=== PATIENT | male | born 1930 | race Caucasian/White ===

== ENCOUNTER 2016-05-13 08:02 | Inpatient (IN) | payer MEDICARE ==
--- NOTE | 2016-05-13 08:43 | RAD ---
History: Cough for a week. Comparison: 12/19/2015. Technique: 2 views Findings: The soft tissue and bony structures appear to be appropriate. The heart size is stable. There is mild prominence of the central vascular structures though the appearance is similar to that seen on prior exam. No gross consolidation, effusion or pneumothorax is visualized. The hilar and mediastinal structures are intact. Impression: 1. Stable prominence of the central pulmonary vascular structures. 2. Linear right apical scarring or atelectasis. 3. An otherwise negative two-view chest.
[2016-05-13 08:57] LABS: ABSOLUTE NEUTROPHIL COUNT 3.7 K/mm3 (1.8-7.7); BASO % 0.2 % (0.2-1.0); EOS % 0.6 % (0.9-2.9); HEMATOCRIT 36.9 % (32.0-52.0); HEMOGLOBIN 12.4 gm/l (14.0-18.0); IMM NEUT% 0.2 % (0-1); LYMPH # 0.5 (1.0-4.8); LYMPH % 9.3 % (15-45); MEAN CELL VOLUME 96.1 fl (80.0-94.0); MEAN CORPUSCULAR HEMOGLOBIN 32.3 pg (27.0-31.0); MEAN CORPUSCULAR HGB CONC 33.6 g/dl (33.0-37.0); MEAN PLATELET VOLUME 9.2 fl (7.4-10.4); MONO % 19.6 % (4-12); NEUT % 70.1 % (43-75); PLATELET COUNT 118 K/mm3 (130-400); RED CELL DISTRIBUTION WIDTH 13.3 % (11.5-14.5)
[2016-05-13 09:15] LABS: ALB/GLOB RATIO 1.3 (>1.0); ALBUMIN 3.5 gm/dL (3.5-5.7); CALCIUM 9.6 mg/dL (8.6-10.3)
[2016-05-13] MEDS ORDERED: LACTATED RINGERS 1,000 ML ONE (09:58)
[2016-05-13 11:18] LABS: URINE APPEARANCE CLEAR; URINE BILIRUBIN NEGATIVE (NEGATIVE); URINE BLOOD NEGATIVE (NEGATIVE); URINE COLOR YELLOW; URINE GLUCOSE (UA) NEGATIVE (NEGATIVE); URINE LEUKOCYTE ESTERASE NEGATIVE (NEGATIVE); URINE NITRITE NEGATIVE (NEGATIVE); URINE PROTEIN TRACE (NEGATIVE); URINE UROBILINOGEN NORMAL (0-1 mg/dl)
[2016-05-13 13:58] VITALS: BMI 25.7
[2016-05-13] MEDS ORDERED: SODIUM CHLORIDE 0.9% 100 ML IV PRN (14:38)
[2016-05-13] MEDS ORDERED: BISACODYL 10 MG SUP PR PRN (14:38)
[2016-05-13] MEDS ORDERED: BLISTEX LIPSTICK 1 EACH TP PRN (14:38)
[2016-05-13] MEDS ORDERED: BISACODYL 5 MG TABLET.EC PO PRN (14:38)
[2016-05-13] MEDS ORDERED: MENTHOL/CETYLPYRD 1 EACH LOZENGE PO PRN (14:38)
[2016-05-13] MEDS ORDERED: MAGNESIUM HYDROXIDE 30 ML UDCUP PO PRN (14:38)
[2016-05-13] MEDS ORDERED: SODIUM CHLORIDE 0.9% 1,000 ML IV SCH ×2 (14:45→15:45)
[2016-05-13] MEDS ORDERED: PUMP TUBING ONE (15:11)
[2016-05-13] MEDS: Oseltamivir Phosphate 75 MG CAP PO SCH ×2 (15:33→20:25)
[2016-05-13] MEDS: ACETAMINOPHEN 325 MG TABLET PO PRN (16:42)
[2016-05-13] MEDS ORDERED: ALBUTEROL/IPRATROPIUM 2.5/0.5 MG 3 ML/EACH DOSE NEB PRN (18:49)
[2016-05-13] MEDS ORDERED: ALBUTEROL NEB 2.5 MG/3 ML VIAL.NEB NEB PRN (18:49)
[2016-05-13] MEDS: ENOXAPARIN SODIUM 40 MG/0.4 ML SYRINGE SUB-Q SCH (20:25)
[2016-05-13] MEDS: TAMSULOSIN HCL 0.4 MG CAPSULE.DR PO SCH (20:25)
[2016-05-13] MEDS: ASPIRIN (ENTERIC COATED) 81 MG TABLET.EC PO SCH (20:25)
[2016-05-13] MEDS: FLUTICASONE PROP 110 MCG 120 PUFF/INHALER IH SCH (20:26)
[2016-05-13] MEDS: DOCUSATE SODIUM 100 MG CAPSULE PO SCH (20:35)
[2016-05-13] MEDS ORDERED: DOCUSATE SODIUM 100 MG CAPSULE PO SCH (21:00)
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
[2016-05-14] MEDS: ACETAMINOPHEN 325 MG TABLET PO PRN (03:27)
[2016-05-14 06:24] LABS: ABSOLUTE NEUTROPHIL COUNT 3.6 K/mm3 (1.8-7.7); BASO % 0.2 % (0.2-1.0); EOS % 0.6 % (0.9-2.9); HEMATOCRIT 33.3 % (32.0-52.0); HEMOGLOBIN 11.1 gm/l (14.0-18.0); IMM NEUT% 0.4 % (0-1); LYMPH # 0.9 (1.0-4.8); LYMPH % 16.5 % (15-45); MEAN CELL VOLUME 97.1 fl (80.0-94.0); MEAN CORPUSCULAR HEMOGLOBIN 32.4 pg (27.0-31.0); MEAN CORPUSCULAR HGB CONC 33.3 g/dl (33.0-37.0); MEAN PLATELET VOLUME 9.4 fl (7.4-10.4); MONO # 0.8 (0.0-0.8); MONO % 14.3 % (4-12); PLATELET COUNT 103 K/mm3 (130-400); RED CELL DISTRIBUTION WIDTH 13.4 % (11.5-14.5)
[2016-05-14 06:42] LABS: ALB/GLOB RATIO 1.3 (>1.0); ALBUMIN 2.9 gm/dL (3.5-5.7)
[2016-05-14] MEDS: DOCUSATE SODIUM 100 MG CAPSULE PO SCH ×2 (09:00→21:00)
[2016-05-14] MEDS: MULTIVITAMINS 1 TAB TABLET PO SCH (09:35)
[2016-05-14] MEDS: TIOTROPIUM BROMIDE 18 MCG 5 CAP/INHALER IH SCH (09:36)
[2016-05-14] MEDS: LISINOPRIL 10 MG TABLET PO SCH (09:36)
[2016-05-14] MEDS: Oseltamivir Phosphate 75 MG CAP PO SCH (09:36)
[2016-05-14] MEDS: FLUTICASONE PROP 110 MCG 120 PUFF/INHALER IH SCH ×2 (09:37→21:01)
--- NOTE | 2016-05-14 12:17 | PDOC43 ---
- Subjective Chief Complaint: Weakness, dyspnea, influenza A Patient reports having some soreness in chest last 30 min, seems assoc with cough. Otherwise, feeling about the same as yesterday, still short of breath with activity despite O2 per [place], limited activity tolerance. - Objective Vital Signs Temperature 98.8 F 05/14/16 11:00 Pulse Rate 78 05/14/16 11:00 Respiratory Rate 20 05/14/16 11:00 Blood Pressure 139/58 05/14/16 11:00 O2 Saturation by Pulse Oximetry 93 05/14/16 11:00 Oxygen Delivery Method Nasal Cannula Oxygen Flow Rate 1 Vital Signs Last 12 Hours Temp Pulse Resp BP Pulse Ox 05/14/16 11:00 98.8 F 78 20 139/58 93 05/14/16 07:00 97.6 F 86 21 153/46 93 05/14/16 03:27 85 22 92 05/14/16 03:25 99.1 F 85 24 145/67 92 05/14/16 02:00 28 Intake and Output 05/12/16 05/13/16 05/14/16 23:59 23:59 23:59 Intake Total 1000 2629 Output Total 200 1550 Balance 800 1079 General: Alert, Cooperative, No Acute Distress Lungs: Other (sl coarse breath sounds bilat. Rare crackles at bases) Cardiovascular: Regular Rate and Rhythm Abdomen: Soft, Normal Bowel Sounds, Non-Distended, No Tenderness Extremities: No Edema, No Tenderness Skin: Normal Color Neurological: Normal Speech Psych/Mental Status: Normal Affect Laboratory 05/14/16 05:30 05/14/16 05:30 05/14/16 05:30 RBC 3.43 L MCV 97.1 H MCH 32.4 H Anion Gap 7 L Estimated GFR 92 H Calcium 8.0 L Total Protein 5.2 L Albumin 2.9 L Current Medications: Current meds reviewed in EMR. Active Medications Acetaminophen (Tylenol) 650 mg PO Q6H PRN PRN Reason: Pain or Temperature > 100.5 F Last Admin: 05/14/16 03:27 Dose: 650 mg Albuterol Sulfate (Ventolin Inhalation Solution (Dose)) 2.5 mg NEB Q2H PRN PRN Reason: Wheezing Albuterol/Ipratropium (Duoneb) 3 ml NEB Q6H PRN PRN Reason: Wheezing Last Admin: 05/14/16 03:27 Dose: 3 ml Aspirin (Ecotrin) 81 mg PO BEDTIME [facility] Last Admin: 05/13/16 20:25 Dose: 81 mg Benzocaine/Menthol (Cepacol) 1 each PO PRN PRN PRN Reason: Sore Throat Bisacodyl (Dulcolax) 10 mg MS DAILY PRN PRN Reason: Constipation Bisacodyl (Dulcolax) 5 mg PO DAILY PRN PRN Reason: Constipation Docusate Sodium (Colace) 200 mg PO BID [facility] Last Admin: 05/13/16 20:35 Dose: Not Given Enoxaparin Sodium (Lovenox) 40 mg SUB-Q Q24H [facility] Last Admin: 05/13/16 20:25 Dose: 40 mg Finasteride (Proscar) 5 mg PO 1200 [facility] Fluticasone Propionate (Flovent Hfa 110 Mcg) 1 puff IH BID [facility] Last Admin: 05/14/16 09:37 Dose: 1 puff Sodium Chloride (Sodium Chloride 0.9%) 100 mls @ 25 mls/hr IV PRN PRN PRN Reason: Flush Lisinopril (Prinivil) 10 mg PO DAILY [facility] Last Admin: 05/14/16 09:36 Dose: 10 mg Magnesium Hydroxide (Milk Of Magnesia) 30 ml PO DAILY PRN PRN Reason: Constipation Multivitamins (One-A-Day) 1 tab PO DAILY [facility] Last Admin: 05/14/16 09:35 Dose: 1 tab Oseltamivir Phosphate (Tamiflu) 30 mg PO BID [facility] Petrolatum/Paraffin/Mineral Oil (Blistex) 1 each TP PRN PRN PRN Reason: Dry and/or chapped lips Sodium Chloride (Normal Saline 10ml Flush) 10 - 50 ml IV PRN PRN PRN Reason: IV Flush Sodium Chloride (Normal Saline 10ml Flush) 10 ml IV Q8HR [facility] Last Admin: 05/14/16 09:35 Dose: 10 ml Tamsulosin HCl (Flomax) 0.4 mg PO BEDTIME [facility] Last Admin: 05/13/16 20:25 Dose: 0.4 mg Tiotropium [place] (Spiriva Handihaler) 1 cap IH DAILY [facility] Last Admin: 05/14/16 09:36 Dose: 1 inh - Problems: Assessment/Plan (1) Influenza A Status: Acute Assessment/Plan: On Tamiflu, started 05/13. Some respiratory distress, still on 1 L O2 per NC. Will continue on current regimen, and plan to assess chest pain with troponin, and [place] prn chest pain/cough (2) HTN (hypertension) Qualifiers: Hypertension type: essential hypertension Qualifier Code: (I10) Essential (primary) hypertension Status: Chronic Assessment/Plan: On regular meds VTE Prophylaxis: enoxaparin Disposition: anticipate a return to home in 1-3 days, expected when tolerating activity on RA.
[2016-05-14] MEDS: FINASTERIDE 5 MG TABLET PO SCH (12:41)
[2016-05-14] MEDS: HYDROCODONE/ACETAMINOPHEN 5/325MG TABLET PO PRN (13:30)
--- NOTE | 2016-05-14 15:43 | PDOC36 ---
Provider Note Subject: Patient noted to have runs of SVT on monitor-TSH ordered, will start on atenolol 25mg PO daily
[2016-05-14] MEDS: ATENOLOL 25 MG TABLET PO SCH (16:11)
[2016-05-14] MEDS ORDERED: IBUPROFEN 200 MG TABLET PO PRN (16:16)
[2016-05-14] MEDS: ENOXAPARIN SODIUM 40 MG/0.4 ML SYRINGE SUB-Q SCH (19:34)
[2016-05-14] MEDS: TAMSULOSIN HCL 0.4 MG CAPSULE.DR PO SCH (21:00)
[2016-05-14] MEDS: ASPIRIN (ENTERIC COATED) 81 MG TABLET.EC PO SCH (21:01)
[2016-05-14] MEDS: OSELTAMIVIR PHOSPHATE 30 MG/5 ML SYRINGE PO SCH (21:01)
[2016-05-15] MEDS: HYDROCODONE/ACETAMINOPHEN 5/325MG TABLET PO PRN ×2 (02:54→21:59)
[2016-05-15 05:56] LABS: ABSOLUTE NEUTROPHIL COUNT 3.1 K/mm3 (1.8-7.7); BASO % 0.2 % (0.2-1.0); EOS # 0.1 (0.0-0.5); EOS % 1.6 % (0.9-2.9); HEMATOCRIT 34.1 % (32.0-52.0); HEMOGLOBIN 11.6 gm/l (14.0-18.0); IMM NEUT% 0.4 % (0-1); LYMPH # 1.1 (1.0-4.8); LYMPH % 21.1 % (15-45); MEAN CELL VOLUME 94.7 fl (80.0-94.0); MEAN CORPUSCULAR HEMOGLOBIN 32.2 pg (27.0-31.0); MEAN PLATELET VOLUME 9.2 fl (7.4-10.4); MONO # 0.8 (0.0-0.8); MONO % 15.7 % (4-12); PLATELET COUNT 102 K/mm3 (130-400)
[2016-05-15 06:15] LABS: ALB/GLOB RATIO 1.2 (>1.0); ALBUMIN 2.9 gm/dL (3.5-5.7); CALCIUM 8.1 mg/dL (8.6-10.3)
[2016-05-15] MEDS: LISINOPRIL 10 MG TABLET PO SCH (08:05)
[2016-05-15] MEDS: ATENOLOL 25 MG TABLET PO SCH (08:05)
[2016-05-15] MEDS: TIOTROPIUM BROMIDE 18 MCG 5 CAP/INHALER IH SCH (08:05)
[2016-05-15] MEDS: DOCUSATE SODIUM 100 MG CAPSULE PO SCH ×2 (08:05→21:02)
[2016-05-15] MEDS: OSELTAMIVIR PHOSPHATE 30 MG/5 ML SYRINGE PO SCH ×2 (08:05→21:02)
[2016-05-15] MEDS: MULTIVITAMINS 1 TAB TABLET PO SCH (08:06)
[2016-05-15] MEDS: FLUTICASONE PROP 110 MCG 120 PUFF/INHALER IH SCH ×3 (08:06→21:02)
--- NOTE | 2016-05-15 10:15 | RAD ---
PORTABLE CHEST RADIOGRAPH HISTORY: Fluid, hypoxia. Frontal portable chest radiograph dated 05/15/2016. COMPARISON: 05/13/2016. FINDINGS: FOCAL AIRSPACE OPACITY: Developing right basilar density. Less prominent developing densities at the left lung base and right upper lung field. PLEURAL EFFUSION: None. CARDIOMEDIASTINAL SILHOUETTE: Nonenlarged. Aortic arch calcification. PNEUMOTHORAX: None identified. OSSEOUS STRUCTURES: No grossly destructive lesions. IMPRESSION: Developing airspace opacities as above, atelectasis and multifocal pneumonia are possible. Aortic atherosclerotic disease.
[2016-05-15] MEDS: FINASTERIDE 5 MG TABLET PO SCH (11:37)
--- NOTE | 2016-05-15 14:05 | PDOC43 ---
- Subjective Chief Complaint: Cough and dyspnea. Feeling better today, eager to go home but still needing O2. Denies dyspnea or weakness. - Objective Vital Signs Temperature 97.8 F 05/15/16 12:44 Pulse Rate 69 05/15/16 12:44 Respiratory Rate 20 05/15/16 12:44 Blood Pressure 122/50 05/15/16 12:44 O2 Saturation by Pulse Oximetry 95 05/15/16 12:44 Oxygen Delivery Method Nasal Cannula Oxygen Flow Rate 1 83% on room air Intake and Output 05/14/16 05/15/16 05/16/16 06:59 06:59 06:59 Intake Total 3629 1430 Output Total 1750 1525 Balance 1879 -95 General: Alert, Oriented x3, Cooperative, No Acute Distress HEENT: Mucous membr. moist/pink Lungs: Clear to Auscultation Bilaterally Cardiovascular: Regular Rate and Rhythm, No Murmur Abdomen: Soft, Normal Bowel Sounds, No Tenderness, No Masses Extremities: Normal Pulses, No Edema Skin: Normal Color Neurological: Normal Speech Psych/Mental Status: Normal Mood Laboratory 05/15/16 05:30 05/15/16 05:30 05/15/16 05:30 RBC 3.60 L MCV 94.7 H MCH 32.2 H Estimated GFR 92 H Calcium 8.1 L Total Protein 5.4 L Albumin 2.9 L Current Medications: Current meds reviewed in EMR. - Problems: Assessment/Plan (1) Influenza A Status: Acute Assessment/Plan: On Tamiflu, started 05/13. Viral Pneumonia on f/u CXR today, still has O2 requirement but feeling much better. (2) HTN (hypertension) Qualifiers: Hypertension type: essential hypertension Qualifier Code: (I10) Essential (primary) hypertension Status: Chronic Assessment/Plan: stable on usual meds. (3) Hyponatremia Status: Acute Assessment/Plan: mild, not significant (4) Anemia Status: Chronic Assessment/Plan: mild, stable, defer to outpatient provider for w/u. (5) COPD (chronic obstructive pulmonary disease) Qualifiers: COPD type: unspecified COPD Qualifier Code: (J44.9) Chronic obstructive pulmonary disease, unspecified Status: Chronic Assessment/Plan: On spireva at home. Current O2 requirement is due to viral pneumonia, not COPD. (6) Hypoxemia Status: Acute Assessment/Plan: Due to viral pneumonia, titrate O2 (7) BPH (benign prostatic hyperplasia) Qualifiers: Prostatic enlargement morphology: unspecified morphology Lower urinary tract symptom presence: symptoms present Qualifier Code: (N40.1) Benign prostatic hyperplasia with lower urinary tract symptoms Status: Chronic Assessment/Plan: stable (8) SVT (supraventricular tachycardia) Status: Acute Assessment/Plan: Transient and resolved. TSH normal, atenolol started. VTE Prophylaxis: enoxaparin Disposition: home vs. SNF in 1-2 days depending on strength and O2 requirement.
[2016-05-15] MEDS: ALBUTEROL/IPRATROPIUM 2.5/0.5 MG 3 ML/EACH DOSE NEB SCH ×2 (15:56→20:43)
[2016-05-15] MEDS: ENOXAPARIN SODIUM 40 MG/0.4 ML SYRINGE SUB-Q SCH (19:35)
[2016-05-15] MEDS: ASPIRIN (ENTERIC COATED) 81 MG TABLET.EC PO SCH (21:01)
[2016-05-15] MEDS: TAMSULOSIN HCL 0.4 MG CAPSULE.DR PO SCH (21:02)
[2016-05-16 07:46] LABS: HEMOGLOBIN 12.4 gm/l (14.0-18.0); MEAN CELL VOLUME 93.5 fl (80.0-94.0); MEAN CORPUSCULAR HEMOGLOBIN 32.2 pg (27.0-31.0); MEAN CORPUSCULAR HGB CONC 34.4 g/dl (33.0-37.0)
[2016-05-16] MEDS: ALBUTEROL/IPRATROPIUM 2.5/0.5 MG 3 ML/EACH DOSE NEB SCH ×2 (07:55→12:04)
[2016-05-16 08:15] VITALS: BP 132/56
[2016-05-16] MEDS: DOCUSATE SODIUM 100 MG CAPSULE PO SCH (09:33)
[2016-05-16] MEDS: ATENOLOL 25 MG TABLET PO SCH (09:33)
[2016-05-16] MEDS: MULTIVITAMINS 1 TAB TABLET PO SCH (09:34)
[2016-05-16] MEDS: FLUTICASONE PROP 110 MCG 120 PUFF/INHALER IH SCH (09:34)
[2016-05-16] MEDS: LISINOPRIL 10 MG TABLET PO SCH (09:34)
[2016-05-16] MEDS: TIOTROPIUM BROMIDE 18 MCG 5 CAP/INHALER IH SCH (09:35)
[2016-05-16] MEDS: OSELTAMIVIR PHOSPHATE 30 MG/5 ML SYRINGE PO SCH (10:18)
--- NOTE | 2016-05-16 11:37 | PDOC5 ---
ADMIT DATE: 05/13/16 DISCHARGE DATE: 05/16/16 ADMISSION DIAGNOSES: Influenza A PROCEDURES PERFORMED THIS HOSPITALIZATION: none CONSULTATIONS: OT/PT--needs SNF rehab for weakness HOSPITAL COURSE: This is a 86 year old became weak and dizzy while visiting his in the hospital. He was taken to the ER where he was diagnosed with acute Influenza A. He was admitted and treated with Tamaflu and supplemental oxygen. He remains weak and needing rehab although his oxygen requirement has resolved. - Exam Vital Signs Temperature 98.0 F 05/16/16 07:00 Pulse Rate 62 05/16/16 07:57 Respiratory Rate 16 05/16/16 07:57 Blood Pressure 132/56 05/16/16 07:00 O2 Saturation by Pulse Oximetry 95 05/16/16 07:57 Oxygen Delivery Method Nasal Cannula Oxygen Flow Rate 1 General: Alert, No Oriented x3, No Cooperative, No Acute Distress HEENT: Mucous membr. moist/pink Lungs: Other (course breath sounds) Cardiovascular: Regular Rate and Rhythm Abdomen: Soft, Normal Bowel Sounds, No Tenderness, No Masses Extremities: Normal Pulses, No Edema Neurological: Normal Speech Psych/Mental Status: Agitated (angry about discharge and transport) - Results Laboratory 05/16/16 07:45 05/15/16 05:30 05/16/16 07:45 RBC 3.85 L MCH 32.2 H - Problems:Assessment/Plan (1) Influenza A Status: Acute Assessment/Plan: On Tamiflu, started 05/13. Viral Pneumonia on f/u CXR 05/15, no O2 requirement. (2) HTN (hypertension) Qualifiers: Hypertension type: essential hypertension Qualifier Code: (I10) Essential (primary) hypertension Status: Chronic Assessment/Plan: stable on usual meds. (3) Hyponatremia Status: Acute Assessment/Plan: mild, not significant (4) Anemia Status: Chronic Assessment/Plan: mild, stable, defer to outpatient provider for w/u. (5) COPD (chronic obstructive pulmonary disease) Qualifiers: COPD type: unspecified COPD Qualifier Code: (J44.9) Chronic obstructive pulmonary disease, unspecified Status: Chronic Assessment/Plan: On spireva at home. Current O2 requirement is due to viral pneumonia, not COPD. (6) Hypoxemia Status: Acute Assessment/Plan: Due to viral pneumonia, titrate O2 (7) BPH (benign prostatic hyperplasia) Qualifiers: Prostatic enlargement morphology: unspecified morphology Lower urinary tract symptom presence: symptoms present Qualifier Code: (N40.1) Benign prostatic hyperplasia with lower urinary tract symptoms Status: Chronic Assessment/Plan: stable (8) SVT (supraventricular tachycardia) Status: Acute Assessment/Plan: Transient and resolved. TSH normal, atenolol started. - Disposition: Disposition: SNF today - Discharge Plan Prescriptions: Atenolol [TENORMIN 25 MG TABLET (SHF)] 25 mg PO DAILY #30 tablet Oseltamivir Phosphate [Tamiflu] 30 mg PO BID 1 Days Condition: Good Disposition: Halfway Facility
== END 2016-05-16 12:15 | DRG 194 ==
LOC: ED 08:02 → MS 13:08
PROVIDERS: ADMIT Family Medicine; ATTEND Family Medicine
DX: J09.X2 Influenza due to identified novel influenza A virus with other respiratory manifestations (principal); E87.1 Hypo-osmolality and hyponatremia; I10 Essential (primary) hypertension; J44.9 Chronic obstructive pulmonary disease, unspecified; F10.21 Alcohol dependence, in remission; R06.00 Dyspnea, unspecified; D64.9 Anemia, unspecified; R09.02 Hypoxemia; N40.1 Benign prostatic hyperplasia with lower urinary tract symptoms